=== PATIENT | female | born 1950 | race Caucasian/White ===

== ENCOUNTER 2018-01-20 14:07 | Emergency (ER) | payer SELFPAY ==
--- NOTE | 2018-01-20 14:43 | ED.PDOC ---
History of Present Illness - General Chief Complaint: ENT Problem Stated Complaint: right ear Time Seen by Provider: 01/20/18 14:42 Source: patient Exam Limitations: no limitations - History of Present Illness Initial Comments: Jana Godfrey 67 y/o female stated that she had right ear pain for the last 2-3 days and she tried to take out possible ear wax w/ q-tip and felt something left inside right ear. Timing/Duration: gradual Severity: moderate EENT Location: ear (R) Prearrival Treatment: no prearrival treatment Presenting Symptoms: ear pain Improving Factors: nothing Worsening Factors: nothing Associated Symptoms: denies symptoms Allergies/Adverse Reactions: Allergies NO KNOWN ALLERGY Allergy (Verified 08/10/12 09:17) Review of Systems - Review of Systems Constitutional: States: no symptoms reported EENTM: States: see HPI Respiratory: States: no symptoms reported Cardiology: States: no symptoms reported Gastrointestinal/Abdominal: States: no symptoms reported Past Medical History (General) - Patient Medical History Hx Hypertension: Yes Family Medical History - Family History Mother Family History: Unknown Physical Exam - Physical Exam General Appearance: Alert, Comfortable, No apparent distress Eye Exam: bilateral normal Ear Exam: right ear: foreign body - ear wax stuck in the right eardrum, bilateral ear: auricle normal, canal normal, TM normal Nasal Exam: normal inspection Throat Exam: normal mouth inspection Neck: non-tender, supple Cardiovascular/Respiratory: regular rate, rhythm, no M/R/G Abdominal Exam: non-tender, no organomegaly Skin Exam: warm/dry Departure - Departure Clinical Impression: Cerumen debris on tympanic membrane of right ear Time of Disposition: 14:53 Disposition: Discharge to Home or Self Care Condition: Fair Departure Forms: ED Discharge - Pt. Copy, Patient Portal Self Enrollment Instructions: Ear Wax Impaction (DC) Additional Instructions: NEED TO USE BABY OIL or /MINERAL OIL -5 Drops to right ear at bedtime for 5-7 days then re check with primary Md 24 January 2018;May Take Aleve 9over the counter ) one tablet am/pm prn for pain
[2018-01-20 15:47] VITALS: BP 170/93; TEMP 98.8; O2SAT 96
== END 2018-01-20 14:58 | disposition home or self-care (01) ==
LOC: ER 14:07
DX: H61.21 Impacted cerumen, right ear (principal)

== ENCOUNTER 2019-04-19 18:00 | Observation (INO) | payer MEDICARE ==
--- NOTE | 2019-04-19 18:52 | RAD ---
EXAM DESCRIPTION: Chest,1 View CLINICAL HISTORY: 68 years Female, afib with rvr COMPARISON: None. TECHNIQUE: AP portable chest. FINDINGS: Heart size is large with increased pulmonary vascularity. Vascularity has increased compared to the previous study suggesting mild volume overload or congestive failure. No curly B lines. No consolidating infiltrate. No pulmonary mass or worrisome nodule. No pneumothorax or pleural effusion. Bones are unremarkable. IMPRESSION: Large heart with vascular congestion. Electronically signed by: Shlomo Cervantes MD 04/19/2019 6:50 PM CDT
[2019-04-19] MEDS ORDERED: POTASSIUM CHLORIDE ELIXIR 20 MEQ/15 ML UD PO ONE (19:04)
[2019-04-19] MEDS ORDERED: METOPROLOL TARTRATE 25 MG TAB PO ONE (19:32)
[2019-04-19] MEDS ORDERED: METOPROLOL TARTRATE INJ 5 MG/5 ML VIAL IV ONE (19:33)
[2019-04-19] MEDS ORDERED: diltiaZEM HCL CD 180 MG CAP PO ONE (20:47)
--- NOTE | 2019-04-19 20:57 | ED.PDOC ---
History of Present Illness - General Chief Complaint: Cardiovascular Problem Stated Complaint: shortness of breath Time Seen by Provider: 04/19/19 18:27 Source: patient Exam Limitations: no limitations - History of Present Illness Initial Comments: the patient is a 68-year-old female presenting to the emergency room secondary to someone checking her pulse at random and finding that it was in the 160s to 170s. The patient has had shortness of breath and some dizziness off and on for a couple of years. It is then 5 or 6 years since she has seen a primary care doctor. The patient has indeed in atrial fibrillation with rapid ventricular rate in the 170s here. She is not having any chest pain. She does get short of breath with any activity. She denies smoking currently but she did in the past. She does have a distant history of alcohol abuse but none in the last 5 years either. No history of any heart attacks according to her. She is not really feeling any different today than she has for the last year at least.she is mildly hypoxic with oxygen saturations around 88% on room air initially. Timing/Duration: unsure Severity: mild Improving Factors: nothing Worsening Factors: nothing Associated Symptoms: malaise, shortness of breath Allergies/Adverse Reactions: Allergies Codeine Allergy (Verified 01/20/18 15:48) Unknown Review of Systems - Review of Systems Constitutional: States: malaise EENTM: States: no symptoms reported Respiratory: States: short of breath Cardiology: States: no symptoms reported Gastrointestinal/Abdominal: States: no symptoms reported Genitourinary: States: no symptoms reported Musculoskeletal: States: no symptoms reported Skin: States: no symptoms reported Neurological: States: no symptoms reported Endocrine: States: no symptoms reported All other Systems: No Change from Baseline Past Medical History (General) - Patient Medical History Hx Stroke: No Hx Congestive Heart Failure: No Hx Hypertension: Yes Hx Diabetes: No Hx MRSA: No Surgical History: tonsillectomy - Vaccination History Hx Tetanus, Diphtheria Vaccination: No Hx Influenza Vaccination: No Hx Pneumococcal Vaccination: No - Social History Hx Tobacco Use: No Hx Alcohol Use: Yes - alcohol free for 5 years Family Medical History - Family History Mother Family History: Unknown Physical Exam - Physical Exam General Appearance: Alert, Ill Appearing Eye Exam: bilateral normal Ears, Nose, Throat: hearing grossly normal, normal ENT inspection Neck: full range of motion, supple Respiratory: normal breath sounds - mild bibasilar rales, no respiratory distress, no accessory muscle use Cardiovascular/Chest: normal peripheral pulses, irregularly irregular - achycardic, other - +1 edema bilaterally Peripheral Pulses: radial,right: 2+, radial,left: 2+, dorsalis pedis,right: 2+, dorsalis pedis,left: 2+ Gastrointestinal/Abdominal: non tender, soft Rectal Exam: deferred Back Exam: no CVA tenderness, no vertebral tenderness Extremity: normal range of motion, non-tender, normal inspection, normal capillary refill, pedal edema - trace to +1 Neurologic: bisque placer II-XII nml as tested, alert, normal mood/affect, oriented x 3 Skin Exam: normal color Comments: Vital Signs - 24 hr 04/19/19 04/19/19 04/19/19 18:22 18:48 18:49 Temperature 98.2 F Pulse Rate 156 H Pulse Rate [ 162 H 162 H Right Brachial] Respiratory 24 Rate Blood Pressure 139/85 [Right Arm] O2 Sat by Pulse 96 Oximetry 04/19/19 04/19/19 19:00 20:00 Temperature Pulse Rate Pulse Rate [ 72 118 H Right Brachial] Respiratory 20 20 Rate Blood Pressure 145/119 121/92 [Right Arm] O2 Sat by Pulse 87 L 92 L Oximetry Progress - Progress Progress: 04/19/19 21:00 the patient is a 68-year-old female presenting with an acute mild CHF exacerbation the patient related to a new diagnosis of atrial fibrillation with rapid ventricular rate. She does have significant hypertension as well contributing. It is uncertain how long she has had these background problems. Hypoxia did improve with slowing down the heart rate. Metoprolol and Cardizem are being used to control the heart rate and the blood pressure. She is feeling a little better already. The patient does have what appears to be a significant microcytic anemia that at least has a significant iron deficiency component. I'm uncertain if she has some other blood dyscrasias such as thalassemia in the background. As severe as this looks she may benefit from an iron infusion before her discharge from inpatient. I'm not giving any blood thinners at this point as the iron deficiency may indicate something along the lines of a slow GI bleed. She will need an echocardiogram in the near future. She will need cardiology in the near future. For now rate control and blood pressure control will be the target.admit for continued management of this. The patient has not yet received any diuretics. She may yet need this however at this point she appears to be clearing without it and does not appear to be markedly fluid overloaded clinically. pura fuentes [id number] - Results/Orders Results/Orders: EKG shows atrial fibrillation with rapid ventricular rate. Normal axis. Normal R-wave progression. Nonspecific ST and T T-wave changes. Difficult to interpret otherwise secondary to his rapidity. Chest x-ray shows some pulmonary vascular congestion. No large effusions. Mild to moderate cardiomegaly. Laboratory Tests 04/19/19 04/19/19 04/19/19 18:30 18:30 18:30 WBC RBC Hgb Hct MCV MCH MCHC RDW Plt Count MPV Absolute Neuts (auto) Absolute Lymphs (auto) Absolute Monos (auto) Absolute Eos (auto) Neutrophils % Neutrophils % (Manual) Lymphocytes % Lymphocytes % (Manual) Monocytes % Monocytes % (Manual) Eosinophils % Basophils % Eosinophils Hypochromia Platelet Estimate Poikilocytosis Anisocytosis Microcytosis Target Cells PT INR PTT (SP) D-Dimer, Quantitative 0.47 Sodium 146 H Potassium 3.2 L Chloride 102 Carbon Dioxide 30 Anion Gap 17.2 BUN 23 H Creatinine 0.79 BUN/Creatinine Ratio 29.1 H Random Glucose 117 H Serum Osmolality 295.3 H Lactic Acid 2.4 H* Calcium 9.2 Magnesium 2.2 Iron TIBC Iron Saturation Total Bilirubin 0.3 AST 27 ALT 23 Alkaline Phosphatase 71 Creatine Kinase 125 CK-MB (CK-2) 6.9 H* CK-MB (CK-2) % Not Reportable Troponin I 0.02 B-Natriuretic Peptide 231.0 H* Serum Total Protein 6.8 Albumin 3.7 Globulin 3.1 Albumin/Globulin Ratio 1.2 TSH 3.01 Urine Color Urine Appearance Urine pH Ur Specific [place] Urine Protein Urine Glucose (UA) Urine Ketones Urine Blood Urine Nitrite Urine Bilirubin Urine Urobilinogen Ur Leukocyte Esterase Urine RBC Urine WBC Ur Epithelial Cells Amorphous Sediment Urine Bacteria 04/19/19 04/19/19 04/19/19 18:30 18:30 18:30 WBC 7.6 RBC 6.36 H* Hgb 9.4 L Hct 33.0 L MCV 51.9 L MCH 14.7 L MCHC 28.4 L RDW 23.7 H Plt Count 465 H MPV 8.6 Absolute Neuts (auto) Not Reportable Absolute Lymphs (auto) Not Reportable Absolute Monos (auto) Not Reportable Absolute Eos (auto) Not Reportable Neutrophils % Not Reportable Neutrophils % (Manual) 50.0 Lymphocytes % Not Reportable Lymphocytes % (Manual) 38.0 Monocytes % Not Reportable Monocytes % (Manual) 6.0 Eosinophils % Not Reportable Basophils % Not Reportable Eosinophils 6.0 Hypochromia 3+ Platelet Estimate Increased Poikilocytosis 1+ Anisocytosis 2+ Microcytosis 3+ Target Cells 1+ PT 9.9 INR 0.99 PTT (SP) 21.4 L D-Dimer, Quantitative Sodium Potassium Chloride Carbon Dioxide Anion Gap BUN Creatinine BUN/Creatinine Ratio Random Glucose Serum Osmolality Lactic Acid Calcium Magnesium Iron 8 L TIBC 508.2 H Iron Saturation 1.50 L Total Bilirubin AST ALT Alkaline Phosphatase Creatine Kinase CK-MB (CK-2) CK-MB (CK-2) % Troponin I B-Natriuretic Peptide Serum Total Protein Albumin Globulin Albumin/Globulin Ratio TSH Urine Color Urine Appearance Urine pH Ur Specific [place] Urine Protein Urine Glucose (UA) Urine Ketones Urine Blood Urine Nitrite Urine Bilirubin Urine Urobilinogen Ur Leukocyte Esterase Urine RBC Urine WBC Ur Epithelial Cells Amorphous Sediment Urine Bacteria 04/19/19 19:01 WBC RBC Hgb Hct MCV MCH MCHC RDW Plt Count MPV Absolute Neuts (auto) Absolute Lymphs (auto) Absolute Monos (auto) Absolute Eos (auto) Neutrophils % Neutrophils % (Manual) Lymphocytes % Lymphocytes % (Manual) Monocytes % Monocytes % (Manual) Eosinophils % Basophils % Eosinophils Hypochromia Platelet Estimate Poikilocytosis Anisocytosis Microcytosis Target Cells PT INR PTT (SP) D-Dimer, Quantitative Sodium Potassium Chloride Carbon Dioxide Anion Gap BUN Creatinine BUN/Creatinine Ratio Random Glucose Serum Osmolality Lactic Acid Calcium Magnesium Iron TIBC Iron Saturation Total Bilirubin AST ALT Alkaline Phosphatase Creatine Kinase CK-MB (CK-2) CK-MB (CK-2) % Troponin I B-Natriuretic Peptide Serum Total Protein Albumin Globulin Albumin/Globulin Ratio TSH Urine Color Yellow Urine Appearance Cloudy Urine pH 8.5 H Ur Specific [place] 1.015 Urine Protein Negative Urine Glucose (UA) Negative Urine Ketones Negative Urine Blood Negative Urine Nitrite Negative Urine Bilirubin Negative Urine Urobilinogen 0.2 Ur Leukocyte Esterase Negative Urine RBC 0 Urine WBC 0-1 Ur Epithelial Cells 1-3 Amorphous Sediment 2+ Urine Bacteria 1+ Departure - Departure Clinical Impression: Atrial fibrillation with RVR, Hypertensive urgency Congestive heart failure Qualifiers: Heart failure type: unspecified Heart failure chronicity: unspecified Qualified Code(s): I50.9 - Heart failure, unspecified Iron deficiency anemia, unspecified Qualifiers: Iron deficiency anemia type: unspecified iron deficiency Qualified Code(s): D50.9 - Iron deficiency anemia, unspecified Disposition: Admit Patient Departure Forms: ED Discharge - Pt. Copy, Patient Portal Self Enrollment Decision To Admit - Decistion To Admit Decision to Admit Reason: Medical Nature Decision to Admit Date: 04/19/19 Decision to Admit Time: 21:05
[2019-04-19] MEDS ORDERED: LACTATED RINGERS 1,000 ML IVS PRN (22:47)
[2019-04-19] MEDS ORDERED: SODIUM CHLORIDE 0.9% (FLUSH) 10 ML SYG IV PRN (22:47)
--- NOTE | 2019-04-19 22:59 | PCM.H&P ---
History of Present Illnes - History of Present Illness Reason for Visit: Rapid heart rate History of Present Illness: 68 yo female with no PCP and no documented PMH came to the ER with a rapid heart rate. Apparently she has had shortness of breath and dizziness for multiple years. No symptoms were worse than normal, but she someone checked her pulse and it was in the 160s. In the ER, she had Afib with RVR. She was given IV diltiazem and metoprolol. She was also given PO of those medications. She was referred for observation. At time of exam, she has actually cardioverted back to [facility]. She is alert and oriented. - Past Medical History Cardiac: HTN - Past Surgical History Past Surgical History: Tonsillectomy - Past Family History Family History: Other - Mother- alchoholism, Father- depression and took his own life. - Past Social History Smoke: No Alcohol: None - History of ETOH abuse, but quit several years ago Drugs: None Review of Systems - Review of Systems Constitutional: Denies: Fever, Chills, Sweats, Weakness Eyes: Denies: Vision Change ENT: Denies: Ear Pain, Nose Discharge, Throat Pain Respiratory: States: Shortness of Breath, SOB with Excertion. Denies: Cough, Pleuritic Pain, Sputum, Wheezing Cardiovascular: States: Light Headedness. Denies: Chest Pain, Palpitations, Edema Gastrointestinal: Denies: Nausea, Vomiting, Abdominal Pain, Diarrhea, Constipation, Melena, Hematochezia Genitourinary: Denies: Dysuria, Frequency Musculoskeletal: Denies: Neck Pain, Shoulder Pain, Arm Pain, Back Pain Skin: Denies: Rash, Lesions, Lobo Neurological: Denies: Weakness, Numbness, Change in Speech, Confusion, Seizures - Medications/Allergies Allergies/Adverse Reactions: Allergies Allergy/AdvReac Type Severity Reaction Status Date / Time Codeine Allergy Unknown Verified 04/19/19 21:31 Medications: Current Medications Lactated Ringer's (Lr) 1,000 mls @ 100 mls/hr IVS .QD PRN PRN Reason: IV THERAPY Stop: 05/19/19 22:46 Sodium Chloride (Saline Flush Syringe) 3 ml IV PRN PRN PRN Reason: IV THERAPY Stop: 05/19/19 22:46 Exam - Exam Vital Signs: Vital Signs (72 hours) 04/19/19 04/19/19 04/19/19 18:22 18:48 18:49 Temperature 98.2 F Pulse Rate 156 H Pulse Rate [ 162 H 162 H Right Brachial] Respiratory 24 Rate Blood Pressure 139/85 [Right Arm] O2 Sat by Pulse 96 Oximetry 04/19/19 04/19/19 04/19/19 19:00 20:00 21:00 Temperature Pulse Rate Pulse Rate [ 72 118 H 121 H Right Brachial] Respiratory 20 20 18 Rate Blood Pressure 145/119 121/92 125/102 [Right Arm] O2 Sat by Pulse 87 L 92 L 95 Oximetry 04/19/19 04/19/19 22:00 22:52 Temperature 98.2 F Pulse Rate Pulse Rate [ 130 H 130 H Right Brachial] Respiratory 18 22 Rate Blood Pressure 118/100 118/100 [Right Arm] O2 Sat by Pulse 94 L 94 L Oximetry General: Alert, Oriented x3, No acute distress HEENT: Atraumatic, PERRLA Lungs: Clear to auscultation, Normal air movement Cardiovascular: Regular rate, Normal S1, Normal S2 Abdomen: Normal bowel sounds, Soft, No tenderness Extremities: No edema, Normal pulses Skin: No rashes Neurological: Normal speech Psych/Mental Status: Mental status NL Assessment/Plan - Assessment/Plan Assessment: 1. Afib with RVR, now cardioverted to [facility]. 2. HTN. 3. Iron deficiency anemia. 4 History of ETOH abuse, now quit for several years. Plan: The patient will be admitted for cardiac monitoring. She does not have a PCP, so we will need to establish one for her prior to discharge. Regarding Afib, she may need to be started on diltiazem or metoprolol. Right now, she is cardioverted. I have ordered an echo for the morning. TSH is normal. She also has a significant iron deficiency anemia. She denies blood in stool or vaginal bleeding. Occult blood was negative in ER. She may require iron supplementation as well.
[2019-04-19] MEDS ORDERED: IV SET AND CAP CHANGE INJ INJ SCH (23:00)
[2019-04-20 03:22] VITALS: O2SAT 98
[2019-04-20 05:39] VITALS: BP 107/72
[2019-04-20] MEDS ORDERED: FERROUS SULFATE 325 MG TAB PO SCH (12:00)
[2019-04-20 13:56] VITALS: TEMP 98.2
--- NOTE | 2019-04-21 14:12 | DS ---
SUPERVISING PHYSICIAN: Dedrick Gottlieb MD DISCHARGE DIAGNOSIS: 1. Atrial fibrillation with rapid ventricular response, now converted to normal sinus rhythm. 2. Hypertension. 3. Iron deficiency anemia. 4. History of ETOH abuse. She has been alcohol-free for several years. 5. 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 HISTORY OF PRESENT ILLNESS: This is a 68-year-old female patient that has no significant medical history although she has not seen a physician in many years. She came to the Emergency Room with a rapid heart rate. She had some shortness of breath and dizziness for several years, but it worsened more than normal prior to coming to the Emergency Room. Someone checked her pulse rate and it was in the 160s, so she came to the Emergency Room. In the Emergency Room, she had atrial fibrillation with rapid ventricular response. She was given IV diltiazem and metoprolol. She converted to normal sinus rhythm in the Emergency Room and was admitted to observation on the Floor. HOSPITAL COURSE: She was given no further antiarrhythmics, beta blockers or ARBs. She was also found to have a UDS that was positive for methamphetamines although the patient denies any use. She stayed in normal sinus rhythm during her observation in the hospital. It is also to be noted that she had significantly low H&H and she said she has had a history many years ago of iron deficiency anemia, but she does not remember any workup. LABORATORY: Initial WBC of 7.6 and on discharge is 7.9. Hemoglobin and hematocrit on admission were 9.4 and 33. Today, hemoglobin 8.7 and hematocrit 31. Her admitting electrolytes showed sodium 146, potassium 3.2, chloride 102, carbon dioxide 30, calcium 9.2, magnesium 2.2. BUN 23, creatinine 0.79. On discharge, her electrolytes were within normal limits. Her lactic acid on admission was 2.4 and improved to 1.4. Cardiac enzymes were negative. Iron was 8, TIBC 508.2, iron saturation was 1.5. Urinalysis was unremarkable. Stool for occult blood was negative. Her chest x-ray in the Emergency Room showed large heart with vascular congestion. An echocardiogram was also done and there are no results on the chart as yet. DISCHARGE PLAN: The patient will be discharged home in stable condition. She is to resume her usual diet and increase her activity as tolerated. Her medications that were started in the hospital were ferrous sulfate and Xopenex nebulizer treatments. She is to return to the hospital or followup with [facility] for any problems or complications. She has a followup appointment to see Dr. Wei Samuel on 04/25/19 at 10 AM. DISCHARGE MEDICATIONS: 1. Ferrous sulfate. 2. Xopenex nebulizers. #[id number] MTDD
== END 2019-04-20 13:40 | disposition home or self-care (01) ==
LOC: ER 18:00 → MS 22:21
PROVIDERS: ADMIT Nurse Practitioner; ATTEND Nurse Practitioner Acute Care
DX: I48.20 Chronic atrial fibrillation, unspecified (principal); I16.0 Hypertensive urgency; I11.9 Hypertensive heart disease without heart failure; D50.9 Iron deficiency anemia, unspecified; F10.21 Alcohol dependence, in remission; R06.02 Shortness of breath; R09.02 Hypoxemia; I34.0 Nonrheumatic mitral (valve) insufficiency; I36.1 Nonrheumatic tricuspid (valve) insufficiency; Z79.899 Other long term (current) drug therapy; Z88.6 Allergy status to analgesic agent; Z87.891 Personal history of nicotine dependence; Z81.1 Family history of alcohol abuse and dependence; Z81.8 Family history of other mental and behavioral disorders
CPT/HCPCS: 96374; 96375; J7120; 85379; 80048; 82270; 82553; 80053; 80307; 36415; 81001; 85025 ×2; 82550; 83735 ×2; 85730; 85610; 84443; 84484; 83880; 83540; 83550; 83605 ×2; 71045; 99285; 93306; 93005

== ENCOUNTER → 2019-04-26 | Outpatient (CLI) | payer MEDICARE | LOC: YCFC.O 09:10 | PROVIDERS: ATTEND Family Medicine | DX: I10 Essential (primary) hypertension (principal); E78.5 Hyperlipidemia, unspecified ==

== ENCOUNTER 2019-05-04 00:30 | Emergency (ER) | payer MEDICARE ==
[2019-05-04] MEDS ORDERED: SODIUM CHLORIDE 0.9% (FLUSH) 10 ML SYG IV PRN (00:53)
--- NOTE | 2019-05-04 01:03 | ED.PDOC ---
History of Present Illness - General Chief Complaint: Respiratory Problem Stated Complaint: feeling short of breath Time Seen by Provider: 05/04/19 00:49 Source: patient, RN notes reviewed, Vital Signs reviewed, family, old records Exam Limitations: no limitations - History of Present Illness Initial Comments: Pt is a 68 yo female who presents to ED for shortness of breath for the past 24 hours. Pt was admitted 04/19/19-04/20/19 here for new onset afib that converted to NSR after Diltiazem. States she was admitted to [facility] 05/01/[address] Blakely for afib, underwent ARIANNA which was negative and electrical cardioversion and was discharged home 05/02/19. States she was told by Dr. Blakely to go to ED if she felt SOB and reports feeling SOB x 24 hours so came to ED for evaluation. Denies CP, light heaed, palpitations, syncope, nausea, fever or cough. Pt on Xarelto, Amiodarone and Metoprolol. Allergies/Adverse Reactions: Allergies Codeine Allergy (Verified 05/04/19 00:36) Unknown Home Medications: Ambulatory Orders Amiodarone HCl 200 mg PO BID 05/04/19 Citalopram Hydrobromide [Citalopram] 10 mg PO DAILY 05/04/19 Ferrous Gluconate [Fergon] 240 mg PO DAILY 05/04/19 Metoprolol Succinate [Metoprolol Succinate ER] 25 mg PO DAILY 05/04/19 Rivaroxaban [Xarelto] 20 mg PO DAILY 05/04/19 Review of Systems - Review of Systems Constitutional: Denies: chills, fever, weakness EENTM: Denies: blurred vision Respiratory: States: short of breath. Denies: cough, orthopnea, stridor, wheezing Cardiology: Denies: chest pain, edema, palpitations, syncope Gastrointestinal/Abdominal: Denies: abdominal pain, nausea, vomiting Musculoskeletal: Denies: back pain, joint pain, muscle pain Skin: Denies: rash Neurological: Denies: headache, paresthesia, weakness Hematologic/Lymphatic: States: other - Denies h/o DVT, PE. Denies: easy bleeding, easy bruising All other Systems: Reviewed and Negative Past Medical History (General) - Patient Medical History Hx Seizures: No Hx Stroke: No Hx Asthma: No Hx of COPD: No Hx Congestive Heart Failure: Yes Hx Pacemaker: No Hx Hypertension: No Hx Diabetes: No Hx MRSA: No - Vaccination History Hx Tetanus, Diphtheria Vaccination: No Hx Influenza Vaccination: No Hx Pneumococcal Vaccination: No - Social History Hx Tobacco Use: No Hx Alcohol Use: Yes Hx Substance Use: No Hx Physical Abuse: No Hx Emotional Abuse: No Family Medical History - Family History Mother Family History: Unknown Living Status: Cause of : cancer Father Living Status: Cause of : suicide Physical Exam - Physical Exam General Appearance: Alert, Comfortable, No apparent distress, Well Developed Eyes, Ears, Nose, Throat Exam: pharynx normal Neck: non-tender, full range of motion, supple Respiratory: chest non-tender, lungs clear, normal breath sounds, no respiratory distress, no accessory muscle use Cardiovascular/Chest: regular rate, rhythm, no edema, no JVD Gastrointestinal/Abdominal: non tender, soft Extremity: normal range of motion, non-tender, no pedal edema, no calf tenderness Neurologic: no motor/sensory deficits, alert, normal mood/affect Progress - Progress Progress: 05/04/19 01:49 Pt presented with SOB after cardioversion 2 days ago. No fever. No hypoxia or respiratory distress. D dimer negative. EKG shows NSR. Labs, imaging and VS reassuring. Pt feels comfortable going home and f/u with pcp in 1-2 days for recheck. SRP given. - Results/Orders Results/Orders: EXAM: XR Chest, 1 View CLINICAL HISTORY: The patient is 68 years old and is Female; sob TECHNIQUE: Frontal view of the chest. COMPARISON: Chest radiograph April 19, 2019. FINDINGS: LUNGS: Unremarkable. No consolidation. PLEURAL SPACE: Unremarkable. No pneumothorax. HEART: The cardiac silhouette is enlarged and stable. MEDIASTINUM: Unremarkable. BONES/JOINTS: There are degenerative changes of the bones. VASCULATURE: Mild prominence of central vasculature is noted. IMPRESSION: Cardiomegaly with findings suggestive of mild vascular congestion. 05/04/19 00:53 IV Care:Saline Lock per Protoc QSHIFT Telemetry .ONCE Sodium Chloride 0.9% (Flush) [Saline Flush Syringe] 10 ml IV PRN PRN Pulse Oximetry Assessment DAILY 05/04/19 00:54 Chest,1 View [RAD] Stat 05/04/19 01:00 EKG STAT 05/04/19 09:00 Pulse Ox Daily Laboratory Results - last 24 hr 05/04/19 05/04/19 05/04/19 01:06 01:06 01:06 WBC 9.2 RBC 6.15 H Hgb 9.2 L Hct 33.1 L MCV 53.8 L MCH 15.0 L MCHC 27.8 L RDW 24.9 H Plt Count 422 H MPV 8.6 Absolute Neuts (auto) 5.10 Absolute Lymphs (auto) 2.80 Absolute Monos (auto) 0.70 Absolute Eos (auto) 0.40 Absolute Basos (auto) 0.10 Neutrophils % 55.7 Lymphocytes % 30.6 Monocytes % 8.1 Eosinophils % 4.6 Basophils % 1.0 Normal RBC Morphology Stain quality accept PT 10.9 INR 1.09 PTT (SP) 26.4 D-Dimer, Quantitative 0.35 Sodium 140 Potassium 4.1 Chloride 111 Carbon Dioxide 21 Anion Gap 12.1 BUN 23 H Creatinine 0.80 BUN/Creatinine Ratio 28.8 H Random Glucose 99 Serum Osmolality 283.1 Calcium 9.4 Total Bilirubin 0.5 AST 24 ALT 23 Alkaline Phosphatase 76 Troponin I B-Natriuretic Peptide 230.0 H* Serum Total Protein 6.9 Albumin 3.7 Globulin 3.2 Albumin/Globulin Ratio 1.2 05/04/19 01:06 WBC RBC Hgb Hct MCV MCH MCHC RDW Plt Count MPV Absolute Neuts (auto) Absolute Lymphs (auto) Absolute Monos (auto) Absolute Eos (auto) Absolute Basos (auto) Neutrophils % Lymphocytes % Monocytes % Eosinophils % Basophils % Normal RBC Morphology PT INR PTT (SP) D-Dimer, Quantitative Sodium Potassium Chloride Carbon Dioxide Anion Gap BUN Creatinine BUN/Creatinine Ratio Random Glucose Serum Osmolality Calcium Total Bilirubin AST ALT Alkaline Phosphatase Troponin I < 0.02 B-Natriuretic Peptide Serum Total Protein Albumin Globulin Albumin/Globulin Ratio - EKG/XRAY/CT EKG: Sinus Comments: rate 66, nml intervals occasional PAC's Departure - Departure Clinical Impression: Dyspnea Qualifiers: Dyspnea type: shortness of breath Qualified Code(s): R06.02 - Shortness of breath; R06.00 - Dyspnea, unspecified; R06.01 - Orthopnea Congestive heart failure Qualifiers: Heart failure type: unspecified Heart failure chronicity: chronic Qualified Code(s): I50.9 - Heart failure, unspecified Time of Disposition: 01:51 Disposition: Discharge to Home or Self Care Condition: Good Departure Forms: ED Discharge - Pt. Copy, Patient Portal Self Enrollment Instructions: DI for Hypoxia Activity: increase activity as tolerated Referrals: Wei Samuel MD [Primary Care Provider] - 1-2 Weeks Home Medications: Ambulatory Orders Amiodarone HCl 200 mg PO BID 05/04/19 Citalopram Hydrobromide [Citalopram] 10 mg PO DAILY 05/04/19 Ferrous Gluconate [Fergon] 240 mg PO DAILY 05/04/19 Metoprolol Succinate [Metoprolol Succinate ER] 25 mg PO DAILY 05/04/19 Rivaroxaban [Xarelto] 20 mg PO DAILY 05/04/19
[2019-05-04 01:07] VITALS: O2SAT 96
[2019-05-04 01:58] VITALS: BP 142/99; TEMP 97.5
--- NOTE | 2019-05-04 10:21 | RAD ---
EXAM: XR Chest, 1 View CLINICAL HISTORY: The patient is 68 years old and is Female; sob TECHNIQUE: Frontal view of the chest. COMPARISON: Chest radiograph April 19, 2019. FINDINGS: LUNGS: Unremarkable. No consolidation. PLEURAL SPACE: Unremarkable. No pneumothorax. HEART: The cardiac silhouette is enlarged and stable. MEDIASTINUM: Unremarkable. BONES/JOINTS: There are degenerative changes of the bones. VASCULATURE: Mild prominence of central vasculature is noted. IMPRESSION: Cardiomegaly with findings suggestive of mild vascular congestion. Electronically signed by: Perla Moreno MD 05/04/2019 1:29 AM [facility]
== END 2019-05-04 01:59 | disposition home or self-care (01) ==
LOC: ER 00:30
DX: I50.9 Heart failure, unspecified (principal); R06.02 Shortness of breath; I49.1 Atrial premature depolarization; Z79.899 Other long term (current) drug therapy; Z88.5 Allergy status to narcotic agent

== ENCOUNTER → 2019-07-11 | Outpatient (CLI) | payer MEDICARE, OTHER | LOC: LAB.O 09:46 | PROVIDERS: ATTEND Family Medicine | DX: R35.1 Nocturia (principal) ==

== ENCOUNTER → 2019-11-23 | Outpatient (CLI) | payer MEDICARE | LOC: YCFC.O 09:41 | PROVIDERS: ATTEND Family Medicine | DX: D50.9 Iron deficiency anemia, unspecified (principal) ==

== ENCOUNTER 2019-12-13 | Emergency (ER) | payer MEDICARE ==
--- NOTE | 2019-12-13 07:07 | ED.PDOC ---
History of Present Illness - General Chief Complaint: ENT Problem Stated Complaint: hearing loss to Rt ear Time Seen by Provider: 12/13/19 07:04 - History of Present Illness Initial Comments: 69 yo F PMH HTN CHF presents to ED c/o right ear pain and not being able to hear after using q tip yesterday. Advised against this practice. Denies recent travel cough sob fever contact with covid19 denies fever chills nausea vomiting erinn rrhea chest pain sob diaphoresis. No change in diet rest bowel or bladder. Denies smoking or drinking admits FH HTN denies FH DM has PMD Dr. Samuel for follow up. No other c/o today. Allergies/Adverse Reactions: Allergies Codeine Allergy (Verified 05/04/19 00:36) Unknown Home Medications: Ambulatory Orders Amiodarone HCl 200 mg PO BID 05/04/19 Citalopram Hydrobromide [Citalopram] 10 mg PO DAILY 05/04/19 Ferrous Gluconate [Fergon] 240 mg PO DAILY 05/04/19 Metoprolol Succinate [Metoprolol Succinate ER] 25 mg PO DAILY 05/04/19 Rivaroxaban [Xarelto] 20 mg PO DAILY 05/04/19 Acetaminophen [Tylenol] 650 mg PO Q6H PRN #30 tab 12/13/19 Amoxicillin & Pot Clavulanate [Augmentin Tab] 875 mg PO BID 10 Days #20 tab 12/13/19 Ciprofloxacin-Dexamethasone [Ciprodex 0.3-0.1 %] 4 bottle OT Q6H 10 Days #1 renetta NS 12/13/19 Review of Systems - Review of Systems Constitutional: States: see HPI EENTM: States: see HPI Respiratory: States: see HPI Cardiology: States: see HPI Gastrointestinal/Abdominal: States: see HPI Genitourinary: States: see HPI Musculoskeletal: States: see HPI Skin: States: see HPI Neurological: States: see HPI Endocrine: States: see HPI Hematologic/Lymphatic: States: see HPI All other Systems: Reviewed and Negative Past Medical History (General) - Patient Medical History Hx Seizures: No Hx Stroke: No Hx Dementia: No Hx Asthma: No Hx of COPD: No Hx Cardiac Disorders: Yes Hx Congestive Heart Failure: Yes Hx Pacemaker: No Hx Hypertension: No Hx Thyroid Disease: No Hx Diabetes: No Hx Gastroesophageal Reflux: No Hx Renal Disease: No Hx Cancer: No Hx of HIV: No Hx Hepatitis C: No Hx MRSA: No Surgical History: no surgical history - Vaccination History Hx Tetanus, Diphtheria Vaccination: No Hx Influenza Vaccination: No Hx Pneumococcal Vaccination: No Immunizations Up to Date: No - Social History Hx Tobacco Use: No Hx Chewing Tobacco Use: No Hx Alcohol Use: No Hx Substance Use: No Hx Substance Use Treatment: No Hx Depression: No Hx Physical Abuse: No Hx Emotional Abuse: No Hx Suspected Abuse: No Family Medical History - Family History Mother Family History: Unknown Living Status: Cause of : cancer Father Living Status: Cause of : suicide Physical Exam - Physical Exam General Appearance: No apparent distress Eye Exam: bilateral normal Ear Exam: right ear: other - eustacean tube with debris and TM not visible also tube is erythematous, left ear: TM normal Nasal Exam: normal inspection Throat Exam: pharynx normal Neck: non-tender, full range of motion Cardiovascular/Respiratory: regular rate, rhythm Abdominal Exam: non-tender Neurologic: no motor/sensory deficits Skin Exam: normal color Progress - Progress Progress: 12/13/19 07:09 A/P-Otalgia Otitis Externa Otitis Media 1.d/c follow up pcp referral tylenol ciprodex augmentin 12/13/19 07:17 Departure - Departure Clinical Impression: Otitis externa Qualifiers: Otitis externa type: unspecified type Chronicity: acute Laterality: right Qualified Code(s): H60.501 - Unspecified acute noninfective otitis externa, right ear Otitis media Qualifiers: Otitis media type: unspecified Chronicity: acute Qualified Code(s): H66.90 - Otitis media, unspecified, unspecified ear Otalgia Qualifiers: Laterality: right Qualified Code(s): H92.01 - Otalgia, right ear Time of Disposition: 07:11 Disposition: Discharge to Home or Self Care Condition: Good Departure Forms: ED Discharge - Pt. Copy, Patient Portal Self Enrollment Referrals: Wei Samuel MD [Primary Care Provider] - 1-2 Weeks Prescriptions: Acetaminophen [Tylenol] 650 mg PO Q6H PRN #30 tab PRN Reason: Pain Amoxicillin & Pot Clavulanate [Augmentin Tab] 875 mg PO BID 10 Days #20 tab Ciprofloxacin-Dexamethasone [Ciprodex 0.3-0.1 %] 4 bottle OT Q6H 10 Days #1 renetta NS Home Medications: Ambulatory Orders Amiodarone HCl 200 mg PO BID 05/04/19 Citalopram Hydrobromide [Citalopram] 10 mg PO DAILY 05/04/19 Ferrous Gluconate [Fergon] 240 mg PO DAILY 05/04/19 Metoprolol Succinate [Metoprolol Succinate ER] 25 mg PO DAILY 05/04/19 Rivaroxaban [Xarelto] 20 mg PO DAILY 05/04/19 Acetaminophen [Tylenol] 650 mg PO Q6H PRN #30 tab 12/13/19 Amoxicillin & Pot Clavulanate [Augmentin Tab] 875 mg PO BID 10 Days #20 tab 12/13/19 Ciprofloxacin-Dexamethasone [Ciprodex 0.3-0.1 %] 4 bottle OT Q6H 10 Days #1 renetta NS 12/13/19
== END 2019-12-13 07:26 | disposition home or self-care (01) ==